=== PATIENT | male | born 1940 ===

== ENCOUNTER 2025-02-24 12:55 | Outpatient (REF) | payer MEDICARE, SELFPAY ==
[2025-02-24 14:53] LABS: INR 5.81
[2025-02-24 14:54] LABS: Prothrombin Time 51.7 sec (9.0-11.6)
== END 2025-02-24 12:56 | disposition home or self-care (01) ==
LOC: LAB 12:55
PROVIDERS: PCP Family Medicine; Visit Provider Family Medicine
DX: Z79.01 Long term (current) use of anticoagulants (principal)
CPT/HCPCS: 36415; 85610